=== PATIENT | female | born 1995 | race Two or more races ===

== ENCOUNTER 2021-02-04 16:09 | Inpatient (IN) | payer OTHER ==
[2021-02-04] MEDS ORDERED: BUTORPHANOL TARTRATE 1 MG/ML VIAL IVPB PRN (20:13)
[2021-02-04] MEDS ORDERED: ELECTROLYTE-148 SOLN 1,000 ML IV SCH (20:15)
[2021-02-04] MEDS ORDERED: OXYTOCIN 30 UNITS in 0.9% NS 30 UNIT/500 ML INFUS.BAG IVPB SCH (20:15)
[2021-02-04] MEDS ORDERED: OXYTOCIN 30 UNITS in 0.9% NS 30 UNIT/500 ML INFUS.BAG IVPB ONE (21:38)
[2021-02-04 21:44] LABS: BASO % 0.3 % (0-2.0); EOS % 0.2 % (0-4.5); HEMATOCRIT 36.8 % (32.4-45.2); HEMOGLOBIN 12.1 GM/dL (10.7-15.3); LYMPH % 19.8 % (8-40); MCH 28.9 pg (25.7-33.7); MCHC 32.9 g/dl (32.0-36.0); MEAN CELL VOLUME 87.8 fl (80-96); MEAN PLT VOLUME 10.6 fl (7.5-11.1); MONO % 6.1 % (3.8-10.2); NEUT % 73.6 % (42.8-82.8); PLATELET COUNT 214 K/MM3 (134-434); RBC 4.19 M/mm3 (3.60-5.2); RDW 15.1 % (11.6-15.6); WHITE BLOOD COUNT 7.8 K/mm3 (4.0-10.0)
[2021-02-04 21:53] LABS: INR 0.96 (0.83-1.09); PROTHROMBIN TIME (PATIENT) 11.8 SEC (9.7-13.0)
[2021-02-04 21:56] LABS: ACTIVATED PTT 30.8 SECONDS (25.2-36.5)
[2021-02-04 22:01] LABS: CALCIUM 8.7 mg/dL (8.5-10.1)
[2021-02-04 22:05] LABS: CREATININE 0.5 mg/dL (0.55-1.3)
[2021-02-04 22:56] LABS: HIV INTERPRETATION NEGATIVE (NEGATIVE)
[2021-02-05] MEDS ORDERED: BUTORPHANOL TARTRATE 1 MG/ML VIAL ONE ×2 (00:35)
[2021-02-05] MEDS ORDERED: FENTANYL/BUPIVACAINE/NS/PF - PCEA - 50 ML DISP.SYRIN EP ONE (03:33)
[2021-02-05] MEDS ORDERED: PCA PUMP NR ONE (03:35)
[2021-02-05] MEDS ORDERED: LIDO 2%/EPI 1:200000 PRESRVFRE (20 ML SDVIAL) ONE (03:40)
[2021-02-05] MEDS: FENTANYL/BUPIVACAINE/NS/PF - PCEA - 50 ML DISP.SYRIN EP SCH (04:15)
[2021-02-05] MEDS ORDERED: NALOXONE HCL 0.4 MG/ML VIAL IVPUSH PRN (04:18)
[2021-02-05] MEDS ORDERED: OXYTOCIN 20 UNITS in 0.9% NS 20 UNIT/1,000 ML INFUS.BAG IV ONE (05:46)
[2021-02-05] MEDS ORDERED: LIDOCAINE HCL 1% PRESERVATIVE FREE - 30ML VIAL ONE (05:46)
[2021-02-05] MEDS ORDERED: BENZOCAINE 28 GM HEMORRHOIDAL OINTMENT RC PRN (06:06)
[2021-02-05] MEDS ORDERED: WITCH HAZEL 50% (TUCKS) 40 PAD/JAR PAD TP PRN (06:06)
[2021-02-05] MEDS ORDERED: BISACODYL 10 MG SUPP.RECT PR PRN (06:06)
[2021-02-05] MEDS ORDERED: BENZOCAINE 20% 57 GM BOTTLE TP PRN (06:06)
[2021-02-05] MEDS ORDERED: METHYLERGONOVINE MALEATE 0.2 MG/1 ML AMP IM PRN (06:06)
[2021-02-05] MEDS ORDERED: OXYTOCIN 20 UNITS in 0.9% NS 20 UNIT/1,000 ML INFUS.BAG IV SCH (06:30)
[2021-02-05 07:34] LABS: CORD HCO3 25.3 mmHg (20-29); CORD PCO2 57.7 mmHg (30-78); CORD pH 7.26 (7.14-7.44)
[2021-02-05 07:36] LABS: CORD HCO3 24.2 mmHg (20-29); CORD PCO2 61.7 mmHg (30-78); CORD pH 7.211 (7.14-7.44)
[2021-02-05] MEDS: ACETAMINOPHEN 325 MG TABLET (FP) PO PRN ×2 (14:04→22:55)
[2021-02-05] MEDS: IBUPROFEN 600 MG TABLET (FP) PO PRN ×2 (14:04→22:55)
[2021-02-06] MEDS: FENTANYL/BUPIVACAINE/NS/PF - PCEA - 50 ML DISP.SYRIN EP SCH (05:55)
[2021-02-06 08:48] LABS: BASO % 0.5 % (0-2.0); EOS % 0.8 % (0-4.5); HEMATOCRIT 33.8 % (32.4-45.2); HEMOGLOBIN 11.3 GM/dL (10.7-15.3); LYMPH % 23.4 % (8-40); MCH 29.4 pg (25.7-33.7); MCHC 33.5 g/dl (32.0-36.0); MEAN CELL VOLUME 87.7 fl (80-96); MONO % 6.8 % (3.8-10.2); NEUT % 68.5 % (42.8-82.8); PLATELET COUNT 192 K/MM3 (134-434); RBC 3.86 M/mm3 (3.60-5.2); RDW 15.2 % (11.6-15.6); WHITE BLOOD COUNT 7.3 K/mm3 (4.0-10.0)
[2021-02-06 09:59] VITALS: BP 115/72; PULSE 73; TEMP 97.8
[2021-02-06] MEDS ORDERED: FLU VACCINE (FLULAVAL) PF 60 MCG/0.5 ML SYRINGE 2020-2021 IM ONE (10:00)
[2021-02-06] MEDS ORDERED: DIPHTH,PERTUSS(ACELL),TET 0.5 ML DISP.SYRIN IM ONE (10:00)
== END 2021-02-06 13:30 | disposition home or self-care (01) | DRG 560 ==
LOC: JLDR 16:09 → J3W 02-05 08:30
PROVIDERS: ADMIT Obstetrics & Gynecology; ATTEND Obstetrics & Gynecology
PROC: 10E0XZZ Delivery of Products of Conception, External Approach (ICD-10-PCS; principal; 2021-02-05)
DX: O69.81X0 Labor and delivery complicated by cord around neck, without compression, not applicable or unspecified (principal); Z3A.39 39 weeks gestation of pregnancy; Z37.0 Single live birth
CPT/HCPCS: 36415; 36600; 59409; 80048; 82803; 85025; 85610; 85730; 86780; 86850; 86900; 86901; 87389; 90715; C9803; Q2036; U0003; U0005